=== PATIENT | female | born 1995 | race American Indian/Alaskan Native ===

== ENCOUNTER 2017-01-05 13:16 | Emergency (ER) | payer BC ==
--- NOTE | 2017-01-05 14:05 | Emergency Department Report ---
Chief Complaint: Vaginal Bleeding Stated Complaint: FEMALE ISSUES Time Seen by Provider: 01/05/17 13:43 - HPI History of Present Illness: She is a 21-year-old female with no problem history presents ED complaining of vaginal bleeding 2 weeks. Patient states she's been on OCPs 1 year and takes it regularly. Patient states last menstrual period was 12/11/2016 and was normal. Patient states vaginal bleeding started lightly got heavy stopped and then started back again. She denies fevers/chills/nausea/vomiting/abdominal pain/chest pain shortness of breath - ROS Review of Systems: As noted in HPI - Exam Vital Signs: Vital Signs 01/05/17 13:33 Temperature 98.5 F Pulse Rate 89 Respiratory 16 Rate Blood Pressure 117/65 O2 Sat by Pulse 100 Oximetry Physical Exam: GENERAL: Alert and oriented x3, no apparent distress, Normal Gait, atraumatic. HEART: S1, S2 present, regular rate and rhythm without murmur, no rubs, no gallops. Non tender to palpation ABDOMEN: No organomegaly was noted,Positive bowel sounds, soft, and non- distended. . Nontender to palpation on all Quadrants, NO CVA tenderness. MSE screening note: Focused history and physical exam performed. Due to findings the following was ordered: ED Medical Decision Making - Lab Data Result diagrams: 01/05/17 14:11 - Medical Decision Making Stable in no acute distress Vitals bleed protocol orders. Patient was seen by ED physician. ED Disposition for MSE Condition: Stable
[2017-01-05 14:32] LABS: Basophils % (Auto) 0.6 % (0.0-1.8); Eosinophils % (Auto) 0.2 % (0.0-4.3); Hematocrit 39.5 % (30.3-42.9); Hemoglobin 13.2 gm/dl (10.1-14.3); Mean Corpuscular HGB Conc 33 % (30-34); Mean Corpuscular Hemoglobin 30 pg (28-32); Mean Corpuscular Volume 90 fl (79-97); Platelet Count 240 K/mm3 (140-440); Red Cell Distribution Width 13.6 % (13.2-15.2); White Blood Count 5.1 K/mm3 (4.5-11.0)
[2017-01-05 15:03] LABS: Mucus,Urine 2+ /HPF
[2017-01-05 15:16] LABS: Bilirubin,Urine NEG (Negative); Blood,Urine LG (Negative); Ketones,Urine NEG (Negative); Leukocyte Esterase,Urine NEG (Negative); Nitrite,Urine NEG (Negative); Protein,Urine <15 mg/dL mg/dL (Negative)
--- NOTE | 2017-01-05 16:03 | Ultrasound Report ---
Pelvic ultrasound: Vaginal bleeding for 2 weeks. Endovaginal and transabdominal imaging demonstrates an anteverted uterus measuring 3.7 x 5.4 x 6.5 cm. The myometrium is unremarkable. The endometrial thickness is 3 mm. No endometrial mass identified. Minimal fluid in the cervix. The left ovary measures 2.5 cm with an eccentric cyst. The right ovary measures 2.3 cm. Minimal free fluid. Impression: No pathology identified to explain bleeding.
[2017-01-05 18:08] VITALS: BP 117/52
--- NOTE | 2017-01-05 18:17 | Emergency Department Report ---
ED Female HPI - General Chief complaint: Vaginal Bleeding Stated complaint: FEMALE ISSUES Time Seen by Provider: 01/05/17 13:43 Source: patient Mode of arrival: Ambulatory Limitations: No Limitations - History of Present Illness Initial comments: 21 yo female with no significant past medical history of asthma presents to the hospital complaining of vaginal cramping and bleeding 2 weeks. Patient had her menstrual cycle as scheduled on 12/14/2016 in the last 3 days. Patient consented to have spotting since the end of her menses and bleeding increased today. Patient has used 1 pad today. She denies shortness of breath, fever, shortness of breath, no syncope, or generalized weakness. Patient is taking control orally. She does not have a local [employer] and just recently moved to this area. - Related Data Allergies Allergy/AdvReac Type Severity Reaction Status Date / Time No Known Allergies Allergy Verified 01/05/17 13:37 ED Review of Systems ROS: Stated complaint: FEMALE ISSUES Other details as noted in HPI Comment: All other systems reviewed and negative Other: Constitutional: No fevers chills Eyes: No eye pain visual changes ENT: No ear pain or throat pain Neck: Denies pain Respiratory: Denies cough wheezing shortness of breath Cardiovascular: Denies chest pain, palpitations, syncope GI: Denies nausea, vomiting, diarrhea, constipation, melena hematochezia : Denies dysuria Musculoskeletal: Denies back pain, joint swelling Skin: Denies rash, lesions, erythema Neurologic: Denies headache, numbness, weakness Psychiatric: Denies suicidal ideation, hallucinations Hematological/lymphatic: Denies easy bruising, lymphadenopathy ED Past Medical Hx - Past Medical History Previous Medical History?: Yes Hx Asthma: Yes - Surgical History Past Surgical History?: No - Social History Smoking Status: Never Smoker Substance Use Type: None ED Physical Exam - General Limitations: No Limitations - Other Other exam information: General: No limitations, patient is alert in no acute distress Head exam: Atraumatic, normocephalic Eyes exam: Normal appearance ENT: Moist mucous membrane, normal oropharynx Neck exam: Normal inspection, full range of motion, no meningismus nontender Respiratory exam: Clear to auscultation bilateral, no wheezes, rales, crackles Cardiovascular: Normal rate and rhythm, normal heart sounds Abdomen: Soft, nondistended, and nontender, with normal bowel sounds, no rebound, or guarding Extremity: Full range of motion normal inspection no deformity Back: Normal Inspection, full range of motion, no tenderness Neurologic: Alert, oriented x3, cranial nerves intact, no motor or sensory deficit Psychiatric: normal affect, normal mood Skin: Warm, dry, intact ED Course Vital Signs 01/05/17 01/05/17 01/05/17 13:33 18:00 18:07 Temperature 98.5 F 98.2 F Pulse Rate 89 69 Respiratory 16 14 Rate Blood Pressure 117/65 Blood Pressure 117/52 [Right] O2 Sat by Pulse 100 100 100 Oximetry - Reevaluation(s) Reevaluation #1: 01/05/17 18:15 Patient pain-free during examination ED Medical Decision Making - Lab Data Result diagrams: 01/05/17 14:11 Lab Results 01/05/17 01/05/17 01/05/17 Range/Units 14:11 14:11 14:13 WBC 5.1 (4.5-11.0) K/mm3 RBC 4.40 (3.65-5.03) M/mm3 Hgb 13.2 (10.1-14.3) gm/dl Hct 39.5 (30.3-42.9) % MCV 90 (79-97) fl MCH 30 (28-32) pg MCHC 33 (30-34) % RDW 13.6 (13.2-15.2) % Plt Count 240 (140-440) K/mm3 Lymph % (Auto) 32.7 (13.4-35.0) % Miller % (Auto) 9.4 H (0.0-7.3) % Eos % (Auto) 0.2 (0.0-4.3) % Baso % (Auto) 0.6 (0.0-1.8) % Lymph # 1.7 (1.2-5.4) K/mm3 Miller # 0.5 (0.0-0.8) K/mm3 Eos # 0.0 (0.0-0.4) K/mm3 Baso # 0.0 (0.0-0.1) K/mm3 Seg Neutrophils % 57.1 (40.0-70.0) % Seg Neutrophils # 2.9 (1.8-7.7) K/mm3 HCG, Quant < 2 (0-4) mIU/mL Urine Color (Yellow) Urine Turbidity (Clear) Urine pH (5.0-7.0) Ur Specific [place] (1.003-1.030) Urine Protein (Negative) mg/dL Urine Glucose (UA) (Negative) mg/dL Urine Ketones (Negative) mg/dL Urine Blood (Negative) Urine Nitrite (Negative) Ur Reducing Substances Urine Bilirubin (Negative) Urine Ictotest Urine Urobilinogen (<2.0) mg/dL Ur Leukocyte Esterase (Negative) Urine WBC (Auto) (0.0-6.0) /HPF Urine RBC (Auto) (0.0-6.0) /HPF U Epithel Cells (Auto) (0-13.0) /HPF Urine Mucus /HPF Blood Type B POSITIVE Antibody Screen Negative 01/05/17 Range/Units 14:30 WBC (4.5-11.0) K/mm3 RBC (3.65-5.03) M/mm3 Hgb (10.1-14.3) gm/dl Hct (30.3-42.9) % MCV (79-97) fl MCH (28-32) pg MCHC (30-34) % RDW (13.2-15.2) % Plt Count (140-440) K/mm3 Lymph % (Auto) (13.4-35.0) % Miller % (Auto) (0.0-7.3) % Eos % (Auto) (0.0-4.3) % Baso % (Auto) (0.0-1.8) % Lymph # (1.2-5.4) K/mm3 Miller # (0.0-0.8) K/mm3 Eos # (0.0-0.4) K/mm3 Baso # (0.0-0.1) K/mm3 Seg Neutrophils % (40.0-70.0) % Seg Neutrophils # (1.8-7.7) K/mm3 HCG, Quant (0-4) mIU/mL Urine Color Yellow (Yellow) Urine Turbidity Clear (Clear) Urine pH 6.0 (5.0-7.0) Ur Specific [place] 1.023 (1.003-1.030) Urine Protein <15 mg/dl (Negative) mg/dL Urine Glucose (UA) Neg (Negative) mg/dL Urine Ketones Neg (Negative) mg/dL Urine Blood Lg (Negative) Urine Nitrite Neg (Negative) Ur Reducing Substances Not Reportable Urine Bilirubin Neg (Negative) Urine Ictotest Not Reportable Urine Urobilinogen 2.0 (<2.0) mg/dL Ur Leukocyte Esterase Neg (Negative) Urine WBC (Auto) 4.0 (0.0-6.0) /HPF Urine RBC (Auto) 64.0 (0.0-6.0) /HPF U Epithel Cells (Auto) 2.0 (0-13.0) /HPF Urine Mucus 2+ /HPF Blood Type Antibody Screen - Medical Decision Making No signs of anemia, , or ultrasound abnormality. Patient has only used 1 pad today although bleeding has increased beyond spotting. [employer] outpatient referral will be provided. - Differential Diagnosis ectopic, , threatened miscarriage, anemia, DUB, fibroids Critical Care Time: No Critical care attestation.: If time is entered above; I have spent that time in minutes in the direct care of this critically ill patient, excluding procedure time. ED Disposition Clinical Impression: Metrorrhagia Disposition: DC- TO HOME OR SELFCARE Is pt being admited?: No Does the pt Need Aspirin: No Condition: Stable Instructions: Dysfunctional Uterine Bleeding (ED) Additional Instructions: Follow-up with her [employer] doctor. Please return if symptoms worsen as indicated by your discharge instructions. Referrals: RAFITA BURROUGHS MD [Staff Physician] - 3-5 Days Time of Disposition: 18:16
== END 2017-01-05 18:24 | disposition home or self-care (01) ==
LOC: ED 13:16
DX: N92.1 Excessive and frequent menstruation with irregular cycle (principal); J45.909 Unspecified asthma, uncomplicated
CPT/HCPCS: 36415; 76830; 76856; 81001; 84702; 85025; 86850; 86900; 86901